=== PATIENT | female | born 1995 | race Caucasian/White ===

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

== ENCOUNTER 2017-08-29 07:39 | Outpatient (CLI) | payer BC ==
[2017-08-29 12:02] LABS: BASOPHILS # (AUTO) 0.1 10^3/uL (0.0-0.1); EOSINOPHILS # (AUTO) 0.3 10^3/uL (0.0-0.7); EOSINOPHILS % (AUTO) 3.6 %; HGB - HEMOGLOBIN 14.5 g/dL (12.0-16.0); LYMPHOCYTES # (AUTO) 2.4 10^3/uL (1.5-3.5); LYMPHOCYTES % (AUTO) 32.3 %; MEAN CORPUSCULAR HEMOGLOBIN 30.5 pg (27.0-31.0); MEAN CORPUSCULAR VOLUME 89.6 fL (81.0-99.0); MONOCYTES # (AUTO) 0.4 10^3/uL (0.0-1.0); MONOCYTES % (AUTO) 6.1 %; NEUTROPHILS # (AUTO) 4.2 10^3/uL (1.5-6.6); PLT - PLATELET COUNT 343 10^3/uL (130-450); RED BLOOD COUNT 4.77 10^6/uL (4.20-5.40); RED CELL DISTRIBUTION WIDTH 13.4 % (12.0-15.0); WHITE BLOOD COUNT 7.3 x10^3/uL (4.8-10.8)
[2017-08-29 12:47] LABS: ALBUMIN 4.3 g/dL (3.2-5.5); ALBUMIN/GLOBULIN RATIO 1.5 (1.0-2.2); BILIRUBIN,TOTAL 0.5 mg/dL (0.2-1.0); CALCIUM 9.3 mg/dL (8.5-10.3); CREATININE 0.6 mg/dL (0.4-1.0); T4 (THYROXINE) 7.16 ug/dL (6.09-12.23); TOTAL PROTEIN 7.2 g/dL (6.7-8.2)
[2017-08-29 12:53] LABS: FREE T4 (FREE THYROXINE) 0.74 ng/dL (0.58-1.64); THYROID STIMULATING HORMONE 0.95 uIU/mL (0.34-5.60)
[2017-08-29 12:57] LABS: TOTAL T3 1.35 ng/mL (0.87-1.78)
== END 2017-08-29 07:40 | disposition home or self-care (01) ==
LOC: LAB.F 07:39
PROVIDERS: ATTEND Registered Nurse
DX: F32.1 Major depressive disorder, single episode, moderate (principal)
CPT/HCPCS: 36415; 80053; 81599; 84436; 84439; 84443; 84480; 84481; 84482; 85025; 87205

== ENCOUNTER 2020-09-20 12:35 | Emergency (ER) | payer BC ==
[2020-09-20 13:20] LABS: BILIRUBIN,URINE NEGATIVE (NEGATIVE); GLUCOSE, URINE (UA) NEGATIVE (NEGATIVE); KETONES,URINE (UA) NEGATIVE (NEGATIVE); LEUKOCYTE ESTERASE, URINE NEGATIVE (NEGATIVE); NITRITE,URINE NEGATIVE (NEGATIVE); OCCULT BLOOD,URINE LARGE (NEGATIVE); PH,URINE 6.5 PH (5.0-7.5); PROTEIN,URINE NEGATIVE (NEGATIVE); UROBILINOGEN,URINE 0.2 (NORMAL) E.U./dL (NORMAL)
[2020-09-20 13:26] LABS: CLARITY,URINE CLEAR (CLEAR); HCG UR QUAL NEGATIVE
[2020-09-20 13:32] LABS: EOSINOPHILS # (AUTO) 0.1 10^3/uL (0.0-0.7); EOSINOPHILS % (AUTO) 0.5 %; WHITE BLOOD COUNT 10.5 x10^3/uL (4.8-10.8)
[2020-09-20 13:40] LABS: BASOPHILS # (AUTO) 0.1 10^3/uL (0.0-0.1); BASOPHILS % (AUTO) 0.6 %; HGB - HEMOGLOBIN 13.9 g/dL (12.0-16.0); LYMPHOCYTES # (AUTO) 2.2 10^3/uL (1.5-3.5); LYMPHOCYTES % (AUTO) 21.1 %; MEAN CORPUSCULAR HEMOGLOBIN 30.3 pg (27.0-31.0); MEAN CORPUSCULAR HGB CONC 32.9 g/dL (32.0-36.0); MEAN CORPUSCULAR VOLUME 92.2 fL (81.0-99.0); MEAN PLATELET VOLUME 9.7 fL (7.9-10.8); MONOCYTES # (AUTO) 0.5 10^3/uL (0.0-1.0); MONOCYTES % (AUTO) 4.9 %; NEUTROPHILS # (AUTO) 7.7 10^3/uL (1.5-6.6); NEUTROPHILS % (AUTO) 72.8 %; PLT - PLATELET COUNT 378 10^3/uL (130-450); RED BLOOD COUNT 4.59 10^6/uL (4.20-5.40); RED CELL DISTRIBUTION WIDTH 12.6 % (12.0-15.0)
[2020-09-20 13:42] LABS: BACTERIA,URINE Rare /HPF (None Seen); RBC,URINE 0-5 /HPF (0-5); SQUAMOUS EPITHELIAL CELL,UR RARE Squamous (<= Few)
[2020-09-20] MEDS ORDERED: SODIUM CHLORIDE 0.9% 1,000 ML IV STA (14:01)
[2020-09-20] MEDS ORDERED: ONDANSETRON 4 MG/2 ML VIAL IVP STA (14:01)
[2020-09-20] MEDS ORDERED: HYDROmorphone 1 MG/ML CARPUJECT IVP STA (14:01)
[2020-09-20 14:02] LABS: ALBUMIN 4.4 g/dL (3.2-5.5); ALBUMIN/GLOBULIN RATIO 1.2 (1.0-2.2); BILIRUBIN,TOTAL 0.6 mg/dL (0.2-1.0); CALCIUM 9.9 mg/dL (8.5-10.3); CREATININE 0.7 mg/dL (0.4-1.0); TOTAL PROTEIN 8.1 g/dL (6.7-8.2)
--- NOTE | 2020-09-20 14:04 | ED Physician Documentation ---
History of Present Illness - Stated complaint Stated Complaint: ABD PX - Chief complaint Chief Complaint: Abd Pain - History obtained from History obtained from: Patient - Additonal information Additional information: 24-year-old female presents the emergency department for evaluation of acute onset right lower quadrant pain that began 4 days ago. She reports that it was associated with nausea and vomiting as well as subjective fevers and anorexia. Since then patient has been constant. This did begin when her period started but denies a history of similar with menstrual cycles. No pertinent past surgical history. Meds OCP Review of Systems Constitutional: reports: Fever Eyes: reports: Reviewed and negative Ears: reports: Reviewed and negative Nose: reports: Reviewed and negative Throat: reports: Reviewed and negative Cardiac: reports: Reviewed and negative Respiratory: reports: Reviewed and negative GI: reports: Abdominal Pain, Nausea, Vomiting. denies: Constipation, Diarrhea, Hematemesis : reports: LMP (09/16/2020). denies: Dysuria, Frequency, Hesitancy Skin: reports: Reviewed and negative Musculoskeletal: reports: Reviewed and negative Neurologic: reports: Reviewed and negative PD PAST MEDICAL HISTORY - Past Medical History Past Medical History: No - Past Surgical History Past Surgical History: No - Present Medications Home Medications: Ambulatory Orders Medication Instructions Recorded Confirmed No Known Home Medications 09/20/20 09/20/20 - Allergies Allergies/Adverse Reactions: Allergies Allergy/AdvReac Type Severity Reaction Status Date / Time No Known Drug Allergies Allergy Verified 09/20/20 13:01 - Social History Does the pt smoke?: No Smoking Status: Never smoker Does the pt drink ETOH?: No Does the pt have substance abuse?: No - Immunizations Immunizations are current?: Yes - POLST Patient has POLST: No PD ED PE EXPANDED - General General: Alert, No acute distress, Well developed/nourished - Neck Neck: No: Adenopathy - Cardiac Cardiac: Regular Rate, Regular Rhythm, Radial strong equal, Cap refill < 2 sec - Respiratory Respiratory: Clear to ausultation anju. No: Distress, Labored - Abdomen Abdomen: Normal Bowel sounds, Tender to palpation, Rebound. No: Guarding (Tenderness to right lower quadrant with rebound but no guarding) - Extremities Extremities: Normal. No: Deformity, Tenderness - Neuro Neuro: Alert and Oriented X 3, CNII-XII intact, Normal gait, Normal finger nose, Normal speech - GCS Eye Opening: Spontaneous Motor: Obeys Commands Verbal: Oriented Total: 15 Results - Vitals Vitals: Vital Signs - 24 hr 09/20/20 09/20/20 09/20/20 13:01 13:05 15:16 Temperature 37.2 C 37.2 C Heart Rate 106 H 101 H 75 Respiratory 18 18 16 Rate Blood Pressure 156/80 H 156/80 H 105/63 O2 Saturation 98 98 100 Oxygen O2 Source Room air - Labs Labs: Laboratory Tests 09/20/20 09/20/20 09/20/20 13:13 13:28 13:28 WBC 10.5 RBC 4.59 Hgb 13.9 Hct 42.3 MCV 92.2 MCH 30.3 MCHC 32.9 RDW 12.6 Plt Count 378 MPV 9.7 Neut # (Auto) 7.7 H Lymph # (Auto) 2.2 [place] # (Auto) 0.5 Eos # (Auto) 0.1 Baso # (Auto) 0.1 Absolute Nucleated RBC 0.00 Nucleated RBC % 0.0 Sodium 138 Potassium 4.0 Chloride 99 L Carbon Dioxide 25 Anion Gap 14.0 H BUN 11 Creatinine 0.7 Estimated GFR (MDRD) 105 Glucose 90 Calcium 9.9 Total Bilirubin 0.6 AST 22 ALT 39 Alkaline Phosphatase 46 Total Protein 8.1 Albumin 4.4 Globulin 3.7 Albumin/Globulin Ratio 1.2 Lipase 35 Urine Color LT. YELLOW Urine Clarity CLEAR Urine pH 6.5 Ur Specific [place] <=1.005 Urine Protein NEGATIVE Urine Glucose (UA) NEGATIVE Urine Ketones NEGATIVE Urine Occult Blood LARGE H Urine Nitrite NEGATIVE Urine Bilirubin NEGATIVE Urine Urobilinogen 0.2 (NORMAL) Ur Leukocyte Esterase NEGATIVE Urine RBC 0-5 Urine WBC 0-3 Ur Squamous Epith Cells RARE Squamous Urine Bacteria Rare Ur Microscopic Review INDICATED Urine Culture Comments NOT INDICATED Urine HCG, Qual NEGATIVE - Rads (name of study) CT abd Radiology: Final report received (Massive heterogeneous soft tissue masses within the pelvis, possibly reflecting multiple confluent or large leiomyoma although leiomyosarcoma in the differential.) PD MEDICAL DECISION MAKING - ED course Complexity details: reviewed results, re-evaluated patient, considered differential, d/w patient, d/w storage management consultant (Dr. Stark) ED course: This is a very well-appearing 24-year-old female that presents to the emergency department for evaluation of 4 days right lower quadrant abdominal pain. It began with the onset of her menstrual cycle. Her initial screening labs were unremarkable including no leukocytosis or signs of urinary infection. However given the location of the pain we proceeded to do a CT of the abdomen to rule out acute appendicitis versus ovarian torsion. Unfortunately the CT scan does show massive soft tissue masses within the pelvis possibly reflecting large leiomyoma although leiomyosarcoma is in the differential. I did discuss the CT findings with Dr. Stark the OB on-call today. He asked me to send CEA and CA-125 markers. He would like to see the patient in office in follow-up on Tuesday or Tuesday this week. He feels that she will likely be referred to a SEO CONSULTANT oncologist. I did spend a fair amount of time at the bedside with the patient discussing these ED findings. She is understandably very concerned. Discussed that we do not know at this time whether it is a cancerous origin or more benign finding such as a leiomyoma or an endometrioma. Emergent and worrisome return precautions discussed Departure - Departure Disposition: 01 Home, Self Care Clinical Impression: Pelvic mass Condition: Stable Record reviewed to determine appropriate education?: Yes Follow-Up: Kevin Stark MD [Provider Admit Priv/Credential] - 09/22/20 Comments: [place] as we discussed unfortunately the CT scan did show very large uterine mass. This could be something very benign such as a uterine fibroid or an endometrioma. However there is a concern that it may be cancer. Also as we discussed that the CT scan did not show any enlarged lymph nodes in your abdomen which is important. I have discussed your case with Dr. Stark the HEALTH INFORMATION TECHNICIAN on-call today. He would like you to follow-up with the office on Tuesday or Tuesday. Please call early Tuesday and request to be seen in reevaluation. It is likely that you will need to be referred to a special export documents clerk that deals with these types of concerns. If at any point you have suddenly severe or uncontrolled pain, high fevers uncontrolled vomiting please return to the emergency department
[2020-09-20] MEDS ORDERED: IOVERSOL 320 100 ML VIAL IVP ONE ×2 (14:18→15:58)
--- NOTE | 2020-09-20 15:03 | CT Report ---
PROCEDURE: Abdomen/Pelvis W INDICATIONS: RLQ pain CONTRAST: IV CONTRAST: Optiray 320 ml: 100 PO CONTRAST: *NO PO CONTRAST TECHNIQUE: After the administration of IV contrast, 5 mm thick sections acquired from the diaphragms to the symp hysis. 5 mm thick coronal and sagittal reformats were acquired. For radiation dose reduction, the f ollowing was used: automated exposure control, adjustment of mA and/or kV according to patient size. COMPARISON: None. FINDINGS: Image quality: Excellent. ABDOMEN: Lung bases: Lung bases are clear. Heart size is normal. Solid organs: Liver and spleen are normal in size and enhancement. Gallbladder unremarkable Biliar y system is non dilated. Pancreas enhances normally. No adrenal nodules. Kidneys demonstrate dottie l size and enhancement, without hydronephrosis. Peritoneum and bowel: Bowel loops demonstrate normal wall thickness and caliber. No free fluid or a ir. Nodes and vessels: No retroperitoneal or mesenteric adenopathy by size criteria. Aorta and inferior vena cava are normal in size. Miscellaneous: No ventral hernias. PELVIS: Genitourinary: Bladder is grossly unremarkable although there is a large central pelvis heterogeneous mass with internal low attenuation. Exact margins are difficult to discern however this measures delmi roximately 14.6 x 18.9 cm on coronal image 26/6. The uterus is not well seen and these could be relat ed to the uterus although technically origin is unknown Miscellaneous: No inguinal hernias or adenopathy. Bones: No suspicious bony lesions. No vertebral body compression fractures. IMPRESSION: Massive heterogeneous soft tissue mass/es within the pelvis, possibly reflecting multipl e confluent or large leiomyoma although leiomyosarcoma is in the differential. Other neoplasms of ova [place] origin, are the differential. Recommend gynecologic surgical consultation and laparoscopic evalu ation as necessary. Appendix not definitely visualized however no suspicious pericecal changes. Reviewed by: Sacha Martinez MD on 09/20/2020 3:01 PM PST Approved by: Sacha Martinez MD on 09/20/2020 3:01 PM PST Station ID: [id number]
[2020-09-20 15:16] VITALS: BP 105/63
== END 2020-09-20 16:27 | disposition home or self-care (01) ==
LOC: ED 12:35
DX: R19.00 Intra-abdominal and pelvic swelling, mass and lump, unspecified site (principal); R10.31 Right lower quadrant pain; R11.2 Nausea with vomiting, unspecified
CPT/HCPCS: 36415; 74177; 80053; 81001; 81025; 82378; 83690; 85025; 86304; 96361; 96374; 96375; 99284; 99285; J1170; Q9967; 81003; 87086

== ENCOUNTER 2020-09-23 16:58 | Outpatient (CLI) | payer BC ==
--- NOTE | 2020-09-24 11:08 | Ultrasound Report ---
PROCEDURE: Pelvic w/Transvaginal INDICATIONS: FIBROID TECHNIQUE: Real-time scanning was performed of the pelvic organs, with image documentation. Additional endovagi nal scanning was necessary due to incomplete visualization of the adnexal and endometrial structures by transabdominal scanning. COMPARISON: CT abdomen pelvis 09/20/2020 FINDINGS: No pathologic free abdominal or pelvic fluid. Uterus: Uterus is not discernible within the pelvis. There are focal and confluent areas of irregula r heterogeneous echogenicity within the pelvis extending to the adnexal regions. Scattered areas of i ncreased vascularity are identified. These correspond to areas of mass lesion identified on CT abdome n pelvis of 09/20/2020. Ovaries: The ovaries are poorly visualized. The left ovary is potentially seen measuring approximate ly 36 x 15 x 30 mm. However, this region is also overlapping with areas of heterogeneous echogenicity as described within the uterine region. There is a questionable visualization of potential right ova ry measuring 35 x 19 x 27 mm, also questionable for ovary versus confluent mass. Mild free fluid is noted within the region of the right adnexa. IMPRESSION: 1. Focal and confluent areas of heterogeneous echogenicity within the region of the expected uterus a nd adnexa as above. Uterine and ovarian structures are not optimally identified. This corresponds to areas of mass lesion identified on CT exam of 09/20/2020. While this could represent extensive fibroid s, overall appearance in conjunction with CT findings raises concern for legal mild sarcoma or other malignancy. Further clinical evaluation as well as MRI pelvis is recommended. The above findings were discussed with Dr. Kevin Stark on 09/23/2020 at 9:00 AM. Reviewed by: Char Bess MD on 09/24/2020 11:06 AM PST Approved by: Char Bess MD on 09/24/2020 11:06 AM PST Station ID: [id number]
== END 2020-09-23 16:59 | disposition home or self-care (01) ==
LOC: DI 16:58
PROVIDERS: ATTEND Obstetrics & Gynecology
DX: D25.9 Leiomyoma of uterus, unspecified (principal)

== ENCOUNTER 2020-09-26 16:40 | Outpatient (CLI) | payer BC ==
[2020-09-26] MEDS ORDERED: GADOBUTROL 7.5 MMOL/7.5 ML VIAL ONE (17:04)
[2020-09-26] MEDS ORDERED: GADOBUTROL 7.5 MMOL/7.5 ML VIAL IVP ONE (17:48)
--- NOTE | 2020-09-29 12:54 | MRI Report ---
PROCEDURE: Pelvis W/WO INDICATIONS: FIBROIDS CONTRAST: IV CONTRAST: Gadavist ml: 6 TECHNIQUE: Coronal ultra fast SE, sagittal breath-hold T2 FSE; axial T1 FSE with and without fat saturation thro ugh the pelvis. Optional long- and short-axis uterine nonbreath-hold T2 FSE through the uterus. Sag ittal or axial dynamic ultra fast GE during administration of contrast. Post-contrast axial or coron al ultra fast GE / 2-D spoiled GE with fat saturation from the iliac crests to the symphysis. Option al diffusion weighted imaging and ADC may be performed. COMPARISON: Ultrasound pelvis 09/23/2020, CT abdomen pelvis 09/20/2020. FINDINGS: Image quality: Diagnostic. Uterus: The uterus is enlarged, with numerous heterogeneous T2 hypointense mass peripheral intrinsic T1 hyperintensity on T1 sequences lesions demonstrated consistent with fibroids. These include a larg e heterogeneous exophytic mass extending anteriorly from the fundus measuring approximately 15.5 x 7. 6 x 9.6 cm suggestive of a large subserosal fibroid. There is also a right paracentral intramural fib roid in the lower uterine segment, measuring up to 5.8 x 5.85 x 5.7 cm with displacement of the endom etrium to the left. This mass demonstrates a rim of peripheral intrinsic T1 hyperintensity on T1 imag es. Following contrast administration there is hypoenhancement centrally which may reflect possible c ystic degeneration. Adnexa: Both ovaries are normal in size, without definite associated suspicious adnexal masses. Urinary system: Bladder wall is normal in thickness. Distal ureters are non distended. Urethra delmi ears normal in morphology. Nodes and vessels: No pelvic or inguinal adenopathy by size criteria. Iliac vessels are normal in s ize. Prominent parametrial vessels are demonstrated in the pelvis. Bowel and peritoneum: No pathologic free pelvic fluid. Inferior colon and small bowel loops are nor mal in caliber. Soft tissues: No inguinal hernias. No findings of pelvic floor incompetence in the absence of provo cation. Bones: Marrow demonstrates normal overall signal. IMPRESSION: 1. Marked diffuse enlargement of the uterus including a suspected large exophytic subserosal fibroid extending anteriorly from the fundus. A large right paracentral intramural fibroid is also demonstrat ed in the lower uterine segment. 2. No definite adnexal masses. Reviewed by: Guerrero Bass MD on 09/29/2020 12:52 PM PST Approved by: Guerrero Bass MD on 09/29/2020 12:52 PM PST Station ID: [id number]
== END 2020-09-26 16:41 | disposition home or self-care (01) ==
LOC: DI 16:40
PROVIDERS: ATTEND Obstetrics & Gynecology
DX: D25.1 Intramural leiomyoma of uterus (principal)
CPT/HCPCS: 72197; A9585

== ENCOUNTER 2020-09-29 14:10 | Outpatient (CLI) | payer BC | END 2020-09-29 14:11 | disposition home or self-care (01) | LOC: LAB 14:10 | PROVIDERS: ATTEND Obstetrics & Gynecology | DX: Z01.812 Encounter for preprocedural laboratory examination (principal); D25.9 Leiomyoma of uterus, unspecified; Z20.822 Contact with and (suspected) exposure to COVID-19 | CPT/HCPCS: 36415; 86850; 86900; 86901; 86920 ==

== ENCOUNTER 2020-10-01 07:26 | Inpatient (IN) | payer BC ==
[2020-10-01] MEDS ORDERED: GABAPENTIN 400 MG CAPSULE ONE (07:42)
[2020-10-01] MEDS ORDERED: CELECOXIB 100 MG CAPSULE PO ONE ×3 (07:43→07:58)
[2020-10-01] MEDS ORDERED: PHENAZOPYRIDINE 100 MG TABLET PO ONE (07:46)
[2020-10-01] MEDS ORDERED: ceFAZolin 2 GM/50 ML 2 GM/50 ML BAG IV ONE (07:46)
[2020-10-01] MEDS ORDERED: ACETAMINOPHEN 1,000 MG/100 ML 100 ML IV ONE (07:46)
[2020-10-01] MEDS ORDERED: LACTATED RINGERS 1,000 ML IV ONE ×2 (08:01→13:04)
[2020-10-01 08:16] LABS: HCG UR QUAL NEGATIVE
--- NOTE | 2020-10-01 08:20 | ANESTHESIA ---
Pre-Anesthesia VS, & Labs - Diagnosis Uterine fibroid - Procedure open abdominal myomectomy. Vital Signs: Temp Pulse Resp BP Pulse Ox 36.5 C 105 H 16 114/77 100 10/01/20 08:09 10/01/20 08:09 10/01/20 08:09 10/01/20 08:09 10/01/20 08:09 Height: 5 ft 3 in Weight (kg): 64.7 kg Body Mass Index: 25.2 BMI Classification: Overweight - NPO >8 hours - Is Patient ?: No - Lab Results Current Lab Results: Laboratory Tests 10/01/20 07:56: POC Whole Bld Glucose 76 10/01/20 07:55: POC Whole Bld Glucose 81 Lab results reviewed: Yes Home Medications and Allergies Home Medications: Ambulatory Orders Control Pills 1 tab PO DAILY 09/29/20 Cholecalciferol [Vitamin D3] 5,000 unit PO DAILY 09/29/20 Multivitamin 1 each PO DAILY 09/29/20 Vitamin E 400 unit PO DAILY 09/29/20 Control Pills 1 tab PO DAILY 09/29/20 Cholecalciferol [Vitamin D3] 5,000 unit PO DAILY 09/29/20 Multivitamin 1 each PO DAILY 09/29/20 Vitamin E 400 unit PO DAILY 09/29/20 Allergies/Adverse Reactions: Allergies Allergy/AdvReac Type Severity Reaction Status Date / Time No Known Drug Allergies Allergy Verified 09/20/20 13:01 Anes History & Medical History - Anesthetic History Anesthesia Complications: reports: No previous complications - Medical History Cardiovascular: reports: None Pulmonary: reports: None Gastrointestinal: reports: None Urinary: reports: Other (hx of kidney reflux as a child) Neuro: reports: None Musculoskeletal: reports: None Endocrine/Autoimmune: reports: None Blood Disorders: reports: None Skin: reports: None Smoking Status: Never smoker Psychosocial: reports: Depression, Anxiety - Surgical History Gynecologic: Other (ureterscope for kidney reflux) Other Past Surgical History: Right breast lumpectomy Exam General: Alert, Oriented x3, Cooperative, No acute distress Dental: WNL Mouth Openin Fingerbreadth Neck Mobility: Normal Mallampati classification: I Thyromental Distance: 4-6 cm Mental/Cognitive Status: Alert/Oriented X3, Normal for patient Plan Anesthesia Type: General, Transverse Abdominis Plane (TAP) Block (Bilateral), Other (Intrathecal narcotics for post op pain) Regional Block: Per Surgeon's request for Post Op pain control Consent for Procedure(s) Verified and Reviewed: Yes Code Status: Attempt Resuscitation ASA classification: 1-Healthy patient Is this case an emergency?: No
[2020-10-01] MEDS ORDERED: DEXAMETHASONE 4 MG/ML VIAL ONE (08:28)
[2020-10-01] MEDS ORDERED: LIDOCAINE-MPF 2% 5 ML VIAL ONE (08:28)
[2020-10-01] MEDS ORDERED: ONDANSETRON 4 MG/2 ML VIAL ONE (08:28)
[2020-10-01] MEDS ORDERED: ROCURONIUM 50 MG/5 ML VIAL ONE ×2 (08:28→12:18)
[2020-10-01] MEDS ORDERED: PROPOFOL 200 MG/20 ML VIAL IVP ONE (08:28)
[2020-10-01] MEDS ORDERED: MIDAZOLAM 2 MG/2 ML VIAL ONE (08:29)
[2020-10-01] MEDS ORDERED: fentaNYL 100 MCG/2 ML VIAL ONE ×2 (08:29→11:08)
[2020-10-01] MEDS ORDERED: BUPIVACAINE 0.5% PF 30 ML VIAL ONE (09:48)
[2020-10-01] MEDS ORDERED: LIDOCAINE 2%-EPI 1:100000 20 ML MDV ONE (09:48)
[2020-10-01] MEDS ORDERED: MORPHINE PF 5 MG/10 ML VIAL ONE (09:49)
[2020-10-01] MEDS ORDERED: VASOPRESSIN 20 UNIT/ML VIAL ONE (09:49)
[2020-10-01] MEDS ORDERED: MORPHINE 2 MG/ML CARPUJECT IVP PRN (09:55)
[2020-10-01] MEDS ORDERED: HYDROmorphone 0.5 MG/0.5 ML SYRINGE IVP PRN ×2 (09:55→13:08)
[2020-10-01] MEDS ORDERED: ATROPINE ABBOJECT 1 MG/10 ML SYRINGE IVP PRN (09:55)
[2020-10-01] MEDS ORDERED: ONDANSETRON 4 MG/2 ML VIAL IVP PRN ×3 (09:55→13:08)
[2020-10-01] MEDS ORDERED: fentaNYL 100 MCG/2 ML VIAL IVP PRN (09:55)
[2020-10-01] MEDS ORDERED: NALOXONE 0.4 MG/ML VIAL IVP PRN ×2 (09:55→11:22)
[2020-10-01] MEDS ORDERED: MORPHINE PF 5 MG/10 ML VIAL IT ONE (10:00)
[2020-10-01] MEDS ORDERED: LACTATED RINGERS 1,000 ML IV SCH (10:00)
[2020-10-01] MEDS ORDERED: VASOPRESSIN 20 UNIT/ML VIAL IVP ONE ×3 (10:47→11:03)
[2020-10-01] MEDS ORDERED: BUPIVACAINE 0.5% PF 30 ML VIAL INFIL ONE ×2 (10:48)
[2020-10-01] MEDS ORDERED: LIDOCAINE 2%-EPI 1:100000 20 ML MDV SUBQ ONE ×2 (10:49)
[2020-10-01] MEDS ORDERED: METOCLOPRAMIDE 10 MG/2 ML VIAL IVP PRN (11:22)
[2020-10-01] MEDS ORDERED: NALBUPHINE 10 MG/ML AMP IVP PRN (11:22)
[2020-10-01] MEDS ORDERED: ePHEDrine 50 MG/ML VIAL IVP PRN (11:22)
[2020-10-01] MEDS ORDERED: diphenhydrAMINE INJ 50 MG/ML VIAL IVP PRN (11:22)
[2020-10-01] MEDS ORDERED: GLYCOPYRROLATE 1 MG/5 ML VIAL ONE (12:30)
[2020-10-01] MEDS ORDERED: NEOSTIGMINE 1 MG/1 ML 10 ML MDV ONE (12:30)
[2020-10-01] MEDS ORDERED: oxyCODONE 5 MG TABLET PO PRN (13:08)
--- NOTE | 2020-10-01 13:17 | OPERATIVE REPORT ---
Operative Report - General Admit Date: 10/01/20 Procedure Date: 10/01/20 Planned Procedure: Laperotomy with myomectomy and cysto Pre-Op Diagnosis: multipul fibroids, pedunculated, submucosal and intramural Procedure Performed: laperotomy with myotomy and removal of multiple fibroids Post Op Diagnosis: same - Procedure Note Primary Surgeon: Kevin Stark MD Secondary Surgeon: Hannah Pennington MD Anesthesia Provider: Bruce Wayen CRNA Anesthesia Technique: General ET tube, Local, Spinal (epidural narcotic) Pathology: conjoinded pedunculated fibroids, subserosil fibroid, and intramural fibroid IV Fluids (mL): 1,300 Estimated Blood Loss (mL): 150 Urine Output (mL): 250
--- NOTE | 2020-10-01 13:26 | ANESTHESIA POST OP EVALUATION ---
Anesthesia Post Eval - Post Anesthesia Eval Vitals: Last Vital Signs Temp 36.8 C 10/01/20 13:10 Pulse 63 10/01/20 13:20 Resp 18 10/01/20 13:20 BP 114/77 10/01/20 13:20 Pulse Ox 99 10/01/20 13:20 CV Function Including HR & BP: positive: Stable Pain Control: positive: Satisfactory Nausea & Vomiting: positive: Negative Mental Status: positive: Patient Participates Respiratory Status: Airway Patent Hydration Status: Satisfactory Anesthesia Complications: positive: None
[2020-10-01] MEDS: KETOROLAC 30 MG/ML VIAL IVP PRN (14:04)
--- NOTE | 2020-10-01 14:10 | OPERATIVE REPORT ---
DATE OF SERVICE: 10/01/2020 Physician: Kevin Stark MD PREOPERATIVE DIAGNOSES 1. Multiple uterine fibroids. 2. At the top of the uterus, 5 x 5 x 10 cm attached to another fibroid 11 x 6 x 10 cm, a submucosal fibroid. POSTOPERATIVE DIAGNOSES 1. Multiple uterine fibroids. 2. At the top of the uterus, 5 x 5 x 10 cm attached to another fibroid 11 x 6 x 10 cm, a submucosal fibroid. PROCEDURE PLANNED: Laparotomy with removal of fibroids. Possible cystoscopy. PROCEDURE: Laparotomy with removal of pedunculated fundal fibroid, as well as submucosal fibroid, my otomy, as well as removal of a posterior intramural fibroid. SURGEON: Kevin Stark MD SOCIAL MEDIA ASSISTANT: Hannah Pennington. ANESTHESIOLOGIST: Bruce Wayne CRNA. ANESTHETIC: General via endotracheal tube with local, as well as epidural narcotic. IV FLUIDS: 1300 mL ESTIMATED BLOOD LOSS: 150 mL URINE OUTPUT: 250 mL FINDINGS: Upon entering the abdominal cavity, there was evidence of a large fibroid raising up to th e umbilicus. This was attached directly on top of a larger fibroid, which was directly attached to t he uterus at the left cornual area. This was within roughly 1-1.5 cm of the left cornu. Upon openin g the uterus, there was evidence of a roughly 6 cm fibroid, which filled and deviated the endometrial cavity. For the most part, this was submucosal and did not appear to be pedunculated. There was al so a posterior fibroid in the uterine wall, which was roughly 1.5-2 cm in diameter. Tubes and ovarie s all appeared to be free of disease. PROCEDURE: Following adequate endotracheal anesthesia, patient placed in the dorsal lithotomy positi on in West stirrups. At this point, she was prepped and draped in the usual fashion. A timeout was then performed, which concerns were raised. The patient had blood typed and crossed because of poss ibility of blood loss. A Pfannenstiel incision was carried down through subcutaneous tissue to the f ascia. A 0.25% Marcaine with 1% lidocaine with epinephrine was injected at the incision site. The f ascia was then divided transversely and then bluntly and sharply dissected free from the rectus abdom inis. There was some bleeding on one of the perforators on the right-hand side that was treated with a [id number] of 2-0 Vicryl. The peritoneum was entered high. Care was taken avoid any injury to the bowel or bladder. Upon entering the abdominal cavity. Pelvic washings were obtained and sent for pathologic evaluation. The fundal fibroid immediately presented itself into the incision. This was then grasped and the 2 fibroids were brought up. There was noted to be on a stalk, which was pr obably about 2.5-3 cm, which was at the left fundus of the uterus. This was cross clamped with a cla mp and then divided using electrocautery. This was then oversewn with 2 layers of 2-0 Vicryl with th e second layer imbricating. There was some extra reinforcement. The sutures did come close to the l eft fallopian tube and its entrance. Care was taken to try to avoid any injury to that tube. At thi s point, good hemostasis was observed. The fundus of the uterus was grasped with a Jaimes retractors and the uterus was pulled up into the incision. It was felt that an O'Jean-O'Howard may help wi th exposure, so this was placed at this time. The bowel was packed away with 4 lap sponges. The henry dder was inspected on the lower uterine segment and at this point, a bladder flap was developed. The n, a low transverse uterine incision was accomplished trying to stay above the internal os of the cer vix, but still going adequately to expose the fibroid. The incision was carried down to the fibroid and then it was grasped with Allises and was bluntly dissected free from the uterine wall. The endom etrium was entered. The fibroid was removed and there was minimal bleeding noted at the base of it. At this point, the uterus was palpated and there was an additional solitary fibroid noted at the pos terior intramural location. This was roughly 1.5-2 cm in size. This was both bluntly and sharply di ssected free. The area was inspected. There was no evidence of any bleeding. At this point, the en dometrium was reapproximated utilizing 2-0 Vicryl. Care was taken to try as much as possible to keep the endometrium as free of suture and unobstructed. The myometrium was closed in 4 layers of 2-0 Vi cryl. The last layer was an imbricating layer. The incision was inspected. There was no evidence o f any bleeding. The fundus of the uterus had some bleeding at the site of the tenaculum site. This was treated with electrocautery, as well as Pitressin. The area was inspected and at this point, devendra e Surgicel was placed over the stump on the left cornual area, as well as over some of the tenaculum sites. There was no evidence of any further bleeding noted at this time. Then, Interceed was placed over the uterine incision. There was no evidence of any bleeding. The pelvis was previously irriga steve out with copious amounts of sterile saline. The peritoneum was closed utilizing 2-0 Vicryl. The rectus reapproximated with loose [id number] of 2-0 Vicryl. The rectus muscle was inspected. No bleeding noted, so the fascia was closed using a looped PDS in a running suture. Care was taken t o try and bury the knot to minimize patient discomfort. The subcutaneous tissue was closed utilizing 2-0 Vicryl and the skin was closed utilizing 4-0 Monocryl subcuticular. Mastisol with Steri-Strips was placed and a dressing was placed. At this point, the procedure was terminated. Sponge and needl e counts were correct. The patient tolerated the procedure well and was taken to recovery in stable condition. TD: 10/01/2020 13:32
[2020-10-01] MEDS: DEXTROSE 5%-LACTATED RINGERS 1,000 ML IV SCH ×2 (15:08→23:05)
[2020-10-01] MEDS: ACETAMINOPHEN 500 MG TABLET PO SCH ×2 (15:09→21:27)
--- NOTE | 2020-10-01 15:39 | PHARMACY PROGRESS NOTE ---
- Best Possible Medication History Admit Date and Time: 10/01/20 0726 Processed by: Pharmacy Medication History completed: Yes Patient Interview: Completed Secondary Source(s): Pharmacy records, Insurance records (Interviewed by El 10/01, only on control. Continued supplements per previous record. ) As the person ultimately responsible for medication therapy, providers are able to order a medication from an existing home medication list in [facility] via the "Reconcile Routine" prior to Confirmation of that medication by network desktop support specialist. Such practice is discouraged except when the physician, in their clinical judgment, deems that a medical need exists for a medication without regard to previous use.
[2020-10-01] MEDS: DOCUSATE SODIUM 100 MG CAPSULE PO SCH (21:27)
[2020-10-02] MEDS: KETOROLAC 30 MG/ML VIAL IVP PRN (03:06)
[2020-10-02] MEDS: ACETAMINOPHEN 500 MG TABLET PO SCH ×3 (06:05→21:01)
[2020-10-02] MEDS: DEXTROSE 5%-LACTATED RINGERS 1,000 ML IV SCH ×2 (06:05→13:49)
[2020-10-02] MEDS: DOCUSATE SODIUM 100 MG CAPSULE PO SCH ×2 (07:49→21:01)
--- NOTE | 2020-10-02 08:55 | PROVIDER PROGRESS NOTE ---
Subjective - General Admit Date: 10/01/20 Procedure Date: 10/01/20 Post Op Days: 1 Procedure Performed: myomectomy - Review of Systems Wound/Incisions: positive: Dressing dry and intact General: positive: No symptoms (pain 10/01) Objective - Patient Data Reviewed Vital Signs: Yes Vital Signs: Vital Signs x48h Temp Pulse Resp BP BP Pulse Ox 10/02/20 05:57 36.9 C 77 20 101/61 99 10/02/20 01:20 36.8 C 82 20 101/42 L 98 Weight: Weight 09/30/20 10/01/20 10/02/20 23:59 23:59 23:59 Weight (kg) 64.7 kg Intake & Output: Intake and Output Totals x24h 09/30/20 10/01/20 10/02/20 23:59 23:59 23:59 Intake Total 2163.75 875 Output Total 1825 650 Balance 338.75 225 - Current Medications Current Medications: Current Medications Generic Name Dose Route Start Last Admin Trade Name Freq PRN Reason Stop Dose Admin Acetaminophen 1,000 mg 10/01/20 14:00 10/02/20 06:05 Acetaminophen 500 Mg Tablet PO 1,000 mg Q8H FRENCH Administration Docusate Sodium 100 mg 10/01/20 21:00 10/02/20 07:49 Docusate Sodium 100 Mg Capsule PO 100 mg BID FRENCH Administration Dextrose/Lactated Ringer's 1,000 mls @ 125 mls/hr 10/01/20 14:00 10/02/20 06:05 D5lr IV 125 mls/hr .Q8H FRENCH Administration Ketorolac Tromethamine 30 mg 10/01/20 13:31 10/02/20 03:06 Ketorolac 30 Mg/Ml Vial IVP 10/06/20 13:30 30 mg Q6HR PRN Administration PAIN Ondansetron HCl 4 mg 10/01/20 11:22 10/01/20 19:27 Ondansetron 4 Mg/2 Ml Vial IVP 10/02/20 11:22 4 mg Q6HR PRN Administration Nausea / Vomiting - Physical Exam Wound/Incisions: positive: Dressing dry and intact General Appearance: positive: No acute distress, Alert Respiratory: positive: Chest non-tender, No respiratory distress, Breath sounds nml Cardiovascular: positive: Regular rate & rhythm, No murmur, No gallop Abdomen: positive: Nml bowel sounds Back: negative: CVA tenderness (R), CVA tenderness (L) Extremities: negative: Calf tenderness, Danuta's sign/cords Neurologic/Psychiatric: positive: Oriented x3 Impression/Plan - Problem List Problem List: POD # 1 progressing well. No flatus yet. will not advance diet yet.
[2020-10-02 09:09] LABS: BASOPHILS % (AUTO) 0.3 %; EOSINOPHILS # (AUTO) 0.1 10^3/uL (0.0-0.7); EOSINOPHILS % (AUTO) 0.6 %; HGB - HEMOGLOBIN 10.1 g/dL (12.0-16.0); LYMPHOCYTES # (AUTO) 1.8 10^3/uL (1.5-3.5); LYMPHOCYTES % (AUTO) 23.3 %; MEAN CORPUSCULAR HEMOGLOBIN 30.4 pg (27.0-31.0); MEAN CORPUSCULAR HGB CONC 32.2 g/dL (32.0-36.0); MEAN CORPUSCULAR VOLUME 94.6 fL (81.0-99.0); MEAN PLATELET VOLUME 9.2 fL (7.9-10.8); MONOCYTES # (AUTO) 0.8 10^3/uL (0.0-1.0); MONOCYTES % (AUTO) 9.5 %; NEUTROPHILS # (AUTO) 5.2 10^3/uL (1.5-6.6); PLT - PLATELET COUNT 311 10^3/uL (130-450); RED BLOOD COUNT 3.32 10^6/uL (4.20-5.40); RED CELL DISTRIBUTION WIDTH 12.5 % (12.0-15.0); WHITE BLOOD COUNT 7.9 x10^3/uL (4.8-10.8)
[2020-10-02] MEDS: IBUPROFEN 600 MG TABLET PO SCH ×2 (11:23→17:35)
[2020-10-03] MEDS: IBUPROFEN 600 MG TABLET PO SCH ×2 (00:14→05:53)
[2020-10-03] MEDS: ACETAMINOPHEN 500 MG TABLET PO SCH (05:53)
[2020-10-03 07:55] VITALS: BP 105/71
--- NOTE | 2020-10-03 09:06 | PROVIDER PROGRESS NOTE ---
Subjective - General Admit Date: 10/01/20 Procedure Date: 10/01/20 Post Op Days: 2 Procedure Performed: myomectomy - Review of Systems Wound/Incisions: positive: Healing well General: positive: No symptoms (pain 10/01, ABDOMINAL BINDER BENIFICIAL) Gastrointestinal: positive: Flatus (Stool) Genitourinary: positive: No symptoms Objective - Patient Data Reviewed Vital Signs: Yes Vital Signs: Vital Signs x48h Temp Pulse Resp BP Pulse Ox 10/03/20 07:54 36.4 C L 79 16 105/71 100 10/03/20 05:56 36.2 C L 77 16 107/69 99 Weight: Weight 10/01/20 10/02/20 10/03/20 23:59 23:59 23:59 Weight (kg) 64.7 kg Intake & Output: Intake and Output Totals x24h 10/01/20 10/02/20 10/03/20 23:59 23:59 23:59 Intake Total 2163.75 4033.667 Output Total 1825 2150 500 Balance 338.75 1883.667 -500 - Lab Results Lab Results: 10/02/20 09:00 Other Lab Results: Lab Results x24hrs 10/02/20 Range/Units 09:00 WBC 7.9 (4.8-10.8) x10^3/uL RBC 3.32 L (4.20-5.40) 10^6/uL Hgb 10.1 L (12.0-16.0) g/dL Hct 31.4 L (37.0-47.0) % MCV 94.6 (81.0-99.0) fL MCH 30.4 (27.0-31.0) pg MCHC 32.2 (32.0-36.0) g/dL RDW 12.5 (12.0-15.0) % Plt Count 311 (130-450) 10^3/uL MPV 9.2 (7.9-10.8) fL Neut # (Auto) 5.2 (1.5-6.6) 10^3/uL Lymph # (Auto) 1.8 (1.5-3.5) 10^3/uL Day # (Auto) 0.8 (0.0-1.0) 10^3/uL Eos # (Auto) 0.1 (0.0-0.7) 10^3/uL Baso # (Auto) 0.0 (0.0-0.1) 10^3/uL Absolute Nucleated RBC 0.00 x10^3/uL Nucleated RBC % 0.0 /100WBC - Current Medications Current Medications: Current Medications Generic Name Dose Route Start Last Admin Trade Name Lyndon PRN Reason Stop Dose Admin Acetaminophen 1,000 mg 10/01/20 14:00 10/03/20 05:53 Acetaminophen 500 Mg Tablet PO 1,000 mg Q8H FRENCH Administration Docusate Sodium 100 mg 10/01/20 21:00 10/02/20 21:01 Docusate Sodium 100 Mg Capsule PO 100 mg BID FRENCH Administration Ibuprofen 600 mg 10/02/20 10:00 10/03/20 05:53 Ibuprofen 600 Mg Tablet PO 600 mg Q6HR FRENCH Administration - Physical Exam Wound/Incisions: positive: Healing well General Appearance: positive: No acute distress, Alert Neck: positive: No JVD Respiratory: positive: Chest non-tender, No respiratory distress, Breath sounds nml Cardiovascular: positive: Regular rate & rhythm, No murmur, No gallop Back: negative: CVA tenderness (R), CVA tenderness (L) Skin: positive: Color nml, No rash, Warm, Dry Extremities: negative: Calf tenderness, Danuta's sign/cords Neurologic/Psychiatric: positive: Oriented x3 Impression/Plan - Problem List Problem List: POD #2 excellent progress mild anemia Send home RTC one week discharge meds oxycodone 5 mg # 15 motrin home supply [facility] home supply
--- NOTE | 2020-10-03 09:10 | Discharge Plan ---
Discharge Plan Problem Reviewed?: Yes Disposition: Home, Self Care Condition: Good Diet: Regular Activity Restrictions: pelvic rest 6 weeks Shower Restrictions: No Driving Restrictions: Yes (not while on narcotics) Weight Bearing: Full Weight No Smoking: If you smoke, Please STOP! Call for help.
--- NOTE | 2020-10-03 12:49 | DISCHARGE SUMMARY ---
Physician: Kevin Stark MD DATE OF ADMISSION: 10/01/2020 DATE OF DISCHARGE: 10/03/2020 ADMITTING DIAGNOSIS: Three large uterine fibroids. DISCHARGE DIAGNOSIS: Three large uterine fibroids. PROCEDURE: Laparotomy with excision of uterine fibroids. PRESENTING HISTORY: Patient is a 24-year-old female who started feeling poorly roughly 5 months ago. She was seen in the emergency room, at which time, she had a CT, which showed 3 large uterine fibro ids. She had an MRI, which confirmed these. Two were in the fundal area, 1 was submucosal. There a lso appeared to be a small posterior intramural fibroid. She is a female and has desired futur e pregnancies. Reviewed with Oncology the concerns about a possible leiomyosarcoma and they recommen ded procedure being done here. LABORATORIES: CBC postop showed a white count of 7.9, hemoglobin of 10.1, hematocrit of 31.4, platel ets were 311. The patient's urine hCG was negative. HOSPITAL COURSE: The patient was taken to the operating room, at which time, an open laparotomy thro ugh a Pfannenstiel incision was accomplished. Upon entering the abdominal cavity, pelvic washings we re taken. She was noted to have 2 fundal fibroids, the sides ran from 10-12 cm in maximal diameter. These were attached in a single small pedicle to the left cornu of the uterus. These were amputated and then the uterus was oversewn. The left fallopian tube was near to this area and is an area of c oncern. A low transverse uterine incision was accomplished and the submucosal fibroid, which was rou ghly 6 cm, was shelled out. This did violate the endometrial cavity. While palpating the uterus, th ere was a smaller 1.5-2 cm fibroid noted in the posterior intramural area. This was removed. The ut erus was then closed in layers. Her postop course has been unremarkable. Her diet has been advanced . She is passing flatus and stool. She is voiding. She states her pain is roughly 2/10. She is co ntrolling this with oxycodone. She is being discharged to home today with instructions to follow up in the clinic in 1 week. DISCHARGE MEDICATIONS: Those of oxycodone 5 mg, #15, Motrin 800 mg home supply, as well as Colace ho al supply. She is told to take the Colace to prevent constipation, which can occur from her oxycodon e. We discussed the issues of chills, fevers, temperatures. TD: 10/03/2020 09:17
== END 2020-10-03 10:00 | disposition home or self-care (01) | DRG 743 ==
LOC: MS2 07:26
PROVIDERS: ADMIT Obstetrics & Gynecology; ATTEND Obstetrics & Gynecology
PROC: 0UB90ZZ Excision of Uterus, Open Approach (ICD-10-PCS; principal; 2020-10-01 08:45)
DX: D25.1 Intramural leiomyoma of uterus (principal); D25.0 Submucous leiomyoma of uterus; D25.2 Subserosal leiomyoma of uterus; D64.9 Anemia, unspecified; E66.3 Overweight; Z68.25 Body mass index [BMI] 25.0-25.9, adult; Z84.2 Family history of other diseases of the genitourinary system
CPT/HCPCS: 81025; 85025; A9270; J0131; J0690; J2274; J7120

== ENCOUNTER 2025-07-23 06:34 | Inpatient (IN) ==
[2025-07-23] MEDS ORDERED: CITRIC ACID/SODIUM CITRATE 15 ML UDC PO ONE (06:37)
--- OUTSIDE RECORDS SUMMARY | 2025-07-23 06:38 | EXTERNAL MEDICAL SUMMARY RPT | Continuity of Care Document ---
Author Organization [facility] Address [address] [place] [id number] Phone Problems date description facility 2025-05-07 09:48 Encounter for superv ision of normal , unspecified, unspecified trimester [facility] 2025-05-10 09:31 Maternal care for lo w transverse scar from previous delivery [facility] 2025-05-10 09:31 Encounter for superv ision of normal , unspecified, unspecified trimester [facility] 2025-05-20 09:25 Encounter for superv ision of normal , unspecified, unspecified trimester [facility] 2025-05-20 11:41 Encounter for immunization [facility] 2025-05-21 00:04 Encounter for superv ision of normal , unspecified, unspecified trimester [facility] 2025-05-21 12:14 Supervision of high risk , unspecified, third trimester [facility] 2025-05-21 14:05 Encounter for superv ision of normal , unspecified, unspecified trimester [facility] 2025-05-22 10:29 Supervision of pregn arjun with history of pre-term labor, third trimester [facility] 2025-05-22 10:30 Encounter for immunization [facility] 2025-06-03 15:04 Supervision of high risk , unspecified, third trimester [facility] 2025-06-03 15:10 Supervision of high risk , unspecified, third trimester [facility] 2025-06-05 08:52 Supervision of high risk , unspecified, third trimester [facility] 2025-06-05 10:58 Encounter for immunization [facility] 2025-06-07 09:26 Maternal care for un specified type scar from previous delivery [facility] 2025-06-07 09:26 Encounter for immunization [facility] 2025-06-12 12:29 Supervision of high risk , unspecified, [facility] 10:26 Encounter for immunization [facility] 2025-06-17 16:06 Supervision of high risk , unspecified, third trimester [facility] 2025-06-18 00:02 Supervision of high risk , unspecified, third trimester [facility] 2025-06-19 08:14 Obesity complicating , third trimester [facility] 2025-06-19 08:14 Encounter for immunization [facility] 2025-06-21 08:09 Supervision of high risk , unspecified, third trimester [facility] 2025-06-21 08:10 Encounter for immunization [facility] 2025-06-27 14:04 Supervision of high risk , unspecified, third trimester [facility] 2025-07-05 10:43 Maternal care for un specified type scar from previous delivery [facility] 2025-07-15 09:19 False labor before 3 7 completed weeks of gestation, third trimester [facility] 2025-07-15 14:10 Encounter for screeni ng for Streptococcus B [facility] 2025-07-15 14:11 Encounter for screeni ng for Streptococcus B [facility] 2025-07-15 15:22 Morbid (severe) obesity due to excess calories [facility]25-[facility]-15 15:22 Obesity, class 1 [facility] 2025-07-15 15:22 Supervision of high risk , unspecified, third [facility] 2025-07-15 15:22 Maternal care for un specified type scar from previous delivery [facility] 2025-07-15 15:22 Maternal care due to uterine scar from other previous surgery [facility] 2025-07-15 15:22 Obesity complicating , third trimester [facility] 2025-07-15 15:22 Encounter for screeni ng for Streptococcus B [facility] 2025-[facility]-15 15:23 Morbid (severe) obesity due to excess calories [facility] 2025-07-15 15:23 Obesity, class 1 [facility] 2025-07-15 15:23 Supervision of high risk , unspecified, third [facility] 15:23 Maternal care for un specified type scar from previous delivery [facility] 2025-07-15 15:23 Maternal care due to uterine scar from other previous surgery [facility] 2025-07-15 15:23 Obesity complicating , third trimester [facility] 2025-07-15 15:23 Encounter for screeni ng for Streptococcus B [facility] 2025-07-16 00:05 Morbid (severe) obesity due to excess calories [facility] 2025-07-16 00:05 Obesity, class 1 [facility] 2025-07-16 00:05 Supervision of high risk , unspecified, third trimester [facility] 2025-07-16 00:05 Maternal care for un specified type scar from previous delivery [facility] 2025-07-16 00:05 Maternal care due to uterine scar from other previous surgery [facility] 2025-07-16 00:05 Obesity complicating , third trimester [facility] 2025-07-16 00:05 Encounter for screeni ng for Streptococcus B [facility] 2025-07-16 08:29 Morbid (severe) obesity due to excess calories [facility] 2025-07-16 08:29 Obesity, class 1 [facility] 2025-07-16 08:29 Supervision of high risk , unspecified, third trimester [employer] [facility] 2025-07-16 08:29 Maternal care for un specified type scar from previous delivery [facility] 2025-07-16 08:29 Maternal care due to uterine scar from other previous surgery [facility] 2025-07-16 08:29 Obesity complicating , third trimester [facility] 2025-07-16 08:29 Encounter for screeni ng for Streptococcus B [facility] 2025-07-17 16:26 Decreased move ments, third trimester, not applicable or unspecified [facility] Results/Labs test date facility value unit notes Result panel 1 WHITE BLOOD COUNT 2025-05-20 10:31 [facility] 10.5 x10 3/ul (missing) HGB - HEMOGLOBIN 2025-05-20 10:31 [facility] 11.6 g/dl (missing) GLUCOSE,1H PP 50GM DOSE 2025-05-20 10:31 [facility] 120 mg/dl 50g Challenge 1 hr post Glucose < 140 mg/dL Reference: [employer] As of February 2023 testing method has changed, this may include reference ranges. RED CELL DISTRIBUTION WIDTH 2025-05-20 10:31 [facility] 13.6 % (missing) MEAN CORPUSCULAR HEMOGLOBIN 2025-05-20 10:31 [facility] 29.2 pg (missing) RED BLOOD COUNT 2025-05-20 10:31 [facility] 3.97 10 6/ul (missing) MEAN CORPUSCULAR HGB CONC 2025-05-20 10:31 [facility] 32.6 g/dl (missing) PLT - PLATELET COUNT 2025-05-20 10:31 [facility] 346 10 3/ul (missing) HCT - HEMATOCRIT 2025-05-20 10:31 [facility] 35.6 % (missing) MEAN CORPUSCULAR VOLUME 2025-05-20 10:31 [facility] 89.7 fl (missing) MEAN PLATELET VOLUME 2025-05-20 10:31 [facility] 9.2 fl (missing) RPR 2025-05-20 10:31 [facility] Non Reactive (missing) Performed at: [facility] [id number] Family Nurse: Guerrero Taylor MD, Phone: [phone] Result panel 2 BILIRUBIN,TOTAL 2025-07-11 17:55 [facility] 0.3 mg/dl As of February 2023 testing method has changed, this may include reference ranges. CREATININE 2025-07-11 17:55 [facility] 0.4 mg/dl As of February 2023 testing method has changed, this may include reference ranges. ALBUMIN/GLOBULIN RATIO 2025-07-11 17:55 [facility] 1.4 (missing) (missing) CHLORIDE 2025-07-11 17:55 [facility] 107 mmol/l As of February 2023 testing method has changed, this may include reference ranges. WHITE BLOOD COUNT 2025-07-11 17:55 [facility] 11.2 x10 3/ul (missing) HGB - HEMOGLOBIN 2025-07-11 17:55 [facility] 12.6 g/dl (missing) RED CELL DISTRIBUTION WIDTH 2025-07-11 17:55 [facility] 13.9 % (missing) SODIUM 2025-07-11 17:55 [facility] 136 mmol/l (missing) AST ASPARTATE AMINOTRANSFERASE 2025-07-11 17:55 [facility] 18 iu/l As of February 2023 testing method has changed, this may include reference ranges. GFR - MDRD 2025-07-11 17:55 [facility] 191 (missing) The IDMS-traceable MDRD Study Equation has been validated extensively in and populations between the ages of 18 and 70 with impaired kidney function (eGFR < 60 mL/min/1.73m2) and has shown good performance for patients with all common causes of kidney disease. Although this equation has not been validated for patients older than 70, an MDRD-derived eGFR may still be a useful tool for providers caring for patients older than 70. References: http://www.nkdep. nih.gov/lab-evalu ation/gfr/creatin ine-stand ardization, last updated October 2011. GLOBULIN 2025-07-11 17:55 [facility] 2.7 g/dl (missing) CARBON DIOXIDE - CO2 2025-07-11 17:55 [facility] 21 mmol/l As of February 2023 testing method has changed, this may include reference ranges. ALKALINE PHOSPHATASE 2025-07-11 17:55 [facility] 223 iu/l As of February 2023 testing method has changed, this may include reference ranges. ALT ALANINE AMINOTRANSFERASE 2025-07-11 17:55 [facility] 23 iu/l As of February 2023 testing method has changed, this may include reference ranges. MEAN CORPUSCULAR HEMOGLOBIN 2025-07-11 17:55 [facility] 29.2 pg (missing) POTASSIUM 2025-07-11 17:55 [facility] 3.5 mmol/l As of February 2023 testing method has changed, this may include reference ranges. ALBUMIN 2025-07-11 17:55 [facility] 3.7 g/dl As of February 2023 testing method has changed, this may include reference ranges. PLT - PLATELET COUNT 2025-07-11 17:55 [facility] 327 10 3/ul (missing) MEAN CORPUSCULAR HGB CONC 2025-07-11 17:55 [facility] 33.3 g/dl (missing) HCT - HEMATOCRIT 2025-07-11 17:55 [facility] 37.8 % (missing) RED BLOOD COUNT 2025-07-11 17:55 [facility] 4.32 10 6/ul (missing) BUN - BLOOD UREA NITROGEN 2025-07-11 17:55 [facility] 5 mg/dl As of February 2023 testing method has changed, this may include reference ranges. TOTAL PROTEIN 2025-07-11 17:55 [facility] 6.4 g/dl As of February 2023 testing method has changed, this may include reference ranges. GLUCOSE 2025-07-11 17:55 [facility] 79 mg/dl As of February 2023 testing method has changed, this may include reference ranges. ANION GAP 2025-07-11 17:55 [facility] 8.0 (missing) (missing) MEAN CORPUSCULAR VOLUME 2025-07-11 17:55 [facility] 87.5 fl (missing) CALCIUM 2025-07-11 17:55 [facility] 9.2 mg/dl As of February 2023 testing method has changed, this may include reference ranges. MEAN PLATELET VOLUME 2025-07-11 17:55 [facility] 9.5 fl (missing) Result panel 3 PROTEIN/CREATININE RATIO,URINE 2025-07-11 18:10 [facility] 0.1 (missing) (missing) CREATININE,URINE 2025-07-11 18:10 [facility] 47.0 mg/dl As of February 2023 testing method has changed, this may include reference ranges. TOTAL PROTEIN,URINE TIMED 2025-07-11 18:10 [facility] 5 mg/dl As of February 2023 testing method has changed, this may include reference ranges. Result panel 4 GBSPCR,REFLEX IF PEN ALLERGIC 2025-07-15 14:10 [facility] NEGATIVE (missing) (missing) Social History date description facility
[2025-07-23 07:20] LABS: HCT - HEMATOCRIT 38.6 % (37.0-47.0); HGB - HEMOGLOBIN 12.6 g/dL (12.0-16.0); MEAN PLATELET VOLUME 9.7 fL (7.9-10.8); NRBC ABSOLUTE COUNT (AUTO) 0.00 x10^3/uL; NUCLEATED RED BLOOD CELLS AUTO 0.0 /100WBC; PLT - PLATELET COUNT 372 10^3/uL (130-450); RED CELL DISTRIBUTION WIDTH 13.9 % (12.0-15.0)
[2025-07-23 08:06] LABS: ALT ALANINE AMINOTRANSFERASE 17.0 IU/L (10-60); AST ASPARTATE AMINOTRANSFERASE 16.0 IU/L (10-42); BUN - BLOOD UREA NITROGEN 7.0 mg/dL (6-20); CARBON DIOXIDE - CO2 20.0 mmol/L (21-32); CREATININE 0.5 mg/dL (0.6-1.3); GFR - MDRD 148.0 (>89)
[2025-07-23] MEDS: ACETAMINOPHEN 500 MG TABLET PO ONE (08:22)
--- NOTE | 2025-07-23 08:25 | HISTORY & PHYSICAL EXAMINATION ---
Admit History Smoking Status: Never smoker Other Maternal History Other Maternal History: 29-year-old at 37 weeks 2 days gestation presenting today for repeat section. She has had intermittent contractions for several week. She has good movement. Denies loss of fluid. No DODSON/BV or RUQP. No vaginal bleeding. Denies nausea and vomiting. Denies urinary urgency or dysuria. All other symptoms reviewed and were negative except per HPI. Course LMP: 10/28/24 - certain MARGOT by LMP: 08/04/25 US: 12/27/24 measuring 7w4d, MARGOT 08/11/25 Final MARGOT: 08/11/25 by 1st tri US Problems: RCS, hx labor/delivery History of myomectomy: Extensive myomectomy including endometrial cavity injury. Early term to late section. Did have 36 weeks spontaneous labor last . Recommend 35 to 36 weeks steroids and progressing to 37 weeks 0 days if possible. History of labor: Delivery at 36+0 weeks last social: Dunia is home mom with 3.5 yo son. Ander works for a [employer] Insufficient weight gain in : EFW on 06/17: 70th percentile, 2129 g. Pre- Weight: 195 BMI: 34.5 Blood type: A+ Antibody: Negative CBC: 13.8/41.1; 347 RUB: Immune VZV: Immune HBsAg: Negative HepC: NR RPR/AB-EIA: NR HIV: NR PAP: 11/08/24 - normal GC/CT: 01/23/2025 HSV: denies in self and partner Genetic testing: NIPT negative, AFP ordered Covid: declines flu 06/05/2025 FAS: 03/25 Placenta: anterior without previa Cord: 3VC VERITO: WNL 59% EFW: 368g 74% 50gm OGCT: 120 TDAP: 05/20/25 Breast Pump: ordered RPR NR CBC: 11.6/35.6/346 RSV- 06/17/25 GBS: 07/15/25 Delivery plan: 36-37 week RCS Contraception: natural family planning HPI Current : Vital Signs Temperature 37.2 C 07/23/25 07:30 Pulse Rate 84 07/23/25 07:30 Respiratory Rate 16 07/23/25 07:30 Blood Pressure 122/81 07/23/25 07:30 O2 Saturation 98 12/02/25 06:42 Meds/Allgy Home Medications Ambulatory Orders Medication Instructions Recorded Confirmed cholecalciferol (vitamin D3) 125 5,000 unit PO DAILY 0 09/29/20 07/15/25 mcg (5,000 unit) capsule fluticasone propionate 50 1 spray intranasal QDAY 11/2107/15/25 mcg/actuation nasal spray,suspension (Flonase Allergy Relief) vits no.126-ferrous fum tab PO 12/17/2407/15 28 mg iron-folic acid 800 mcg tablet (Classic ) Allergies Allergies Allergy/AdvReac Type Severity Reaction Status Date / Time No Known Drug Allergies Allergy Verified 07/15/25 14:06 PFSH Active Problems All Active Problems (Updated 07/23/25 @ 08:24 by Abdias Garcia MD) 37 weeks gestation of (Acute) Maternal care for low transverse scar from previous delivery (Acute) Supervision of high risk in third trimester (Acute) Obesity, Class I, BMI 30-34.9 (Acute) Obesity affecting (Acute) Hx of uterine surgery affecting current (Acute) with history of section, antepartum (Acute) Medical History Medical History (Updated 07/23/25 @ 08:24 by Abdias Garcia MD) Supervision of high risk , unspecified, first trimester Encounter for Papanicolaou smear for cervical cancer screening Normal in second trimester Anovulation Secondary amenorrhea Fibroid, uterine Migraines Anxiety and depression Surgical History Surgical History (Updated 12/18/24 @ 21:53 by Dee Kim MD) H/O myomectomy History of kidney surgery History of delivery H/O breast surgery Family History Family History Mother Breast cancer Maternal grandmother Ovarian cancer Uncle Suicide Other Prostate cancer Social History Social History (Updated 04/11/25 @ 13:51 by Romy Johns MA) Smoking Status: Never smoker Do you dip or chew tobacco?: No Do you vape?: No ETOH Use: Liquor Frequency: Occasional Substance Use: denies use POLST Patient has POLST: No Review of Systems Status of ROS: 10 or more systems reviewed and unremarkable except as noted in history and below Physical Abdominal Exam Vital Signs: Temp Pulse Resp BP Pulse Ox 37.2 C 84 16 122/81 98 07/23/25 07:30 07/23/25 07:30 07/23/25 07:30 07/23/25 07:30 07/23/25 06:42 Other Notes Labor Progress Note/Additional Text: General: Alert, oriented, no acute distress Head: Normal cephalic atraumatic Eyes: PERRLA, extraocular motions intact. Respiratory: Normal rate of respiration. No accessory muscle use, normal respiratory effort. Abdomen: Gravid, nontender, nondistended Extremities: Normal range of motion Neuro: Oriented x3. Normal movements Psych: Appropriate mood and affect. Normal judgment and insight FHT: 135 BPM baseline, moderate variability, accelerations present, no decelerations. Reactive NST Miston: quiescent Plan for Labor Plan For Labor I expect patient to be DC'd or transferred within 96 hours.: Yes Conclusion/Plan Problem List (1) Maternal care for low transverse scar from previous delivery: Plan: Admit to L&D, admit labs. Plan for spinal anesthetic for section. section was recommended. Risks, benefits and alternatives were discussed including but not limited to infection, bleeding that may require blood products or hysterectomy for life saving measures, injury to surrounding organs including but not limited to bowel, bladder, ureters, tubes and ovaries and/or the baby. Should injury occur it could require longer/additional surgery to repair. The patient stated understanding and desired to proceed. All questions were answered posed by patient. (2) 37 weeks gestation of : (3) Supervision of high risk in third trimester: (4) Obesity, Class I, BMI 30-34.9: (5) Obesity affecting : Qualifiers: Trimester: third trimester Obesity type affecting : severe obesity due to excess calories Qualified Code(s): O99.213 - Obesity complicating , third trimester; E66.01 - Morbid (severe) obesity due to excess calories (6) Hx of uterine surgery affecting current : (7) with history of section, antepartum: Lab Results 07/23/25 06:58 07/23/25 06:58
[2025-07-23] MEDS ORDERED: MORPHINE PF 5 MG/10 ML VIAL ONE (08:42)
[2025-07-23] MEDS ORDERED: fentaNYL 100 MCG/2 ML VIAL ONE (08:42)
[2025-07-23] MEDS ORDERED: ePHEDrine 50 MG/ML VIAL IVP PRN (08:52)
[2025-07-23] MEDS ORDERED: MORPHINE 2 MG/ML CARPUJECT IVP PRN (08:52)
[2025-07-23] MEDS ORDERED: NALOXONE 0.4 MG/ML VIAL IVP PRN (08:52)
[2025-07-23] MEDS ORDERED: HYDROmorphone 0.5 MG/0.5 ML SYRINGE IVP PRN (08:52)
[2025-07-23] MEDS ORDERED: METOCLOPRAMIDE 10 MG/2 ML VIAL IVP PRN (08:52)
[2025-07-23] MEDS ORDERED: ONDANSETRON 4 MG/2 ML VIAL IVP PRN (08:52)
[2025-07-23] MEDS ORDERED: ATROPINE ABBOJECT 1 MG/10 ML SYRINGE IVP PRN (08:52)
--- NOTE | 2025-07-23 08:52 | ANESTHESIA PROCEDURE NOTE ---
Pre-Anesthesia VS, & Labs Diagnosis Surgical Diagnosis:: previous C/S Procedure Procedure: repeat C/s Vitals Vital Signs: Temp Pulse Resp BP Pulse Ox 37.2 C 84 16 127/91 H 98 07/23/25 07:30 07/23/25 07:30 07/23/25 07:30 07/23/25 07:50 07/23/25 06:42 NPO NPO: >8 hours Is Patient ?: Yes Lab Results Current Lab Results: Laboratory Tests 07/23/25 06:58: WBC 9.0, RBC 4.47, Hgb 12.6, Hct 38.6, MCV 86.4, MCH 28.2, MCHC 32.6, RDW 13.9, Plt Count 372, MPV 9.7, Neut # (Auto) 5.9, Lymph # (Auto) 2.2, [place] # (Auto) 0.7, Eos # (Auto) 0.2, Baso # (Auto) 0.1, Absolute Nucleated RBC 0.00, Nucleated RBC % 0.0, Sodium 136, Potassium 3.7, Chloride 106, Carbon Dioxide 20 L, Anion Gap 10.0, BUN 7, Creatinine 0.5 L, Estimated GFR (MDRD) 148, Glucose 80, Calcium 9.4, Total Bilirubin 0.4, AST 16, ALT 17, Alkaline Phosphatase 268 H, Total Protein 5.9 L, Albumin 3.6, Globulin 2.3, Albumin/Globulin Ratio 1.6, Blood Type A POSITIVE, Antibody Screen NEGATIVE 07/23/25 06:58 07/23/25 06:58 Meds/Allgy Home Medications Ambulatory Orders Medication Instructions Recorded Confirmed cholecalciferol (vitamin D3) 125 5,000 unit PO DAILY 0 09/29/20 07/15/25 mcg (5,000 unit) capsule fluticasone propionate 50 1 spray intranasal QDAY 11/2107/15/25 mcg/actuation nasal spray,suspension (Flonase Allergy Relief) vits no.126-ferrous fum tab PO 12/17/2407/15 28 mg iron-folic acid 800 mcg tablet (Classic ) Allergies Allergies Allergy/AdvReac Type Severity Reaction Status Date / Time No Known Drug Allergies Allergy Verified 07/15/25 14:06 PFSH Active Problems All Active Problems 37 weeks gestation of (Acute) Maternal care for low transverse scar from previous delivery (Acute) Supervision of high risk in third trimester (Acute) Obesity, Class I, BMI 30-34.9 (Acute) Obesity affecting (Acute) Hx of uterine surgery affecting current (Acute) with history of section, antepartum (Acute) Medical History Medical History Normal in second trimester Supervision of high risk , unspecified, first trimester Encounter for Papanicolaou smear for cervical cancer screening Secondary amenorrhea Anovulation Fibroid, uterine Migraines Anxiety and depression Surgical History Surgical History H/O myomectomy History of kidney surgery History of delivery H/O breast surgery Family History Family History Mother Breast cancer Maternal grandmother Ovarian cancer Uncle Suicide Other Prostate cancer Social History Social History Smoking Status: Never smoker Do you dip or chew tobacco?: No Do you vape?: No ETOH Use: Liquor Frequency: Occasional Substance Use: denies use POLST Patient has POLST: No POLST CPR Status: Attempt Resuscitation (CPR) Level of Medical Intervention: Full Treatment Anesthesia Exam (Expanded) Exam General: Alert, Oriented x3 and Cooperative Dental: WNL Mouth Openin Fingerbreadth Neck Mobility: Normal Mallampati classification: II Thyromental Distance: 4-6 cm Respiratory: Lungs clear Cardiovascular: Regular rate Exam Exam Vital Signs: Vital Signs x48h Temp Pulse Resp BP BP Pulse Ox 07/23/25 07:50 127/91 H 07/23/25 07:30 37.2 C 84 16 122/81 07/23/25 06:42 18 136/92 H 98 Plan Problem List (1) Maternal care for low transverse scar from previous delivery: Plan: Admit to L&D, admit labs. Plan for spinal anesthetic for section. section was recommended. Risks, benefits and alternatives were discussed including but not limited to infection, bleeding that may require blood products or hysterectomy for life saving measures, injury to surrounding organs including but not limited to bowel, bladder, ureters, tubes and ovaries and/or the baby. Should injury occur it could require longer/additional surgery to repair. The patient stated understanding and desired to proceed. All questions were answered posed by patient. (2) 37 weeks gestation of : (3) Supervision of high risk in third trimester: (4) Obesity, Class I, BMI 30-34.9: (5) Obesity affecting : Qualifiers: Trimester: third trimester Obesity type affecting : severe obesity due to excess calories Qualified Code(s): O99.213 - Obesity complicating , third trimester; E66.01 - Morbid (severe) obesity due to excess calories (6) Hx of uterine surgery affecting current : (7) with history of section, antepartum: Plan Anesthesia Type: Spinal Consent for Procedure(s) Verified and Reviewed: Yes Code Status: Attempt Resuscitation ASA Classification ASA classification: 2-Mild systemic disease Is this case an emergency?: No
[2025-07-23] MEDS ORDERED: CARBOPROST TROMETHAMINE 250 MCG/ML VIAL IM ONE (09:19)
[2025-07-23] MEDS ORDERED: METHYLERGONOVINE 0.2 MG/ML VIAL ONE (09:19)
[2025-07-23] MEDS: ceFAZolin (2G) 2 GM in SODIUM CHLORIDE 0.9% MINIBAG 100 ML IV ONE (09:30)
[2025-07-23] MEDS ORDERED: KETOROLAC 30 MG/ML VIAL ONE (09:36)
[2025-07-23] MEDS ORDERED: OXYTOCIN/SODIUM CHLORIDE 500 ML IV ONE (10:02)
[2025-07-23] MEDS ORDERED: TRANEXAMIC ACID IN NACL 1,000 MG/100 ML BAG IV ONE ×2 (10:02→10:30)
[2025-07-23] MEDS ORDERED: PROPOFOL 200 MG/20 ML VIAL IVP ONE (10:49)
[2025-07-23] MEDS: LACTATED RINGERS 1,000 ML IV SCH ×2 (11:13→12:00)
[2025-07-23] MEDS ORDERED: OXYTOCIN/SODIUM CHLORIDE 500 ML IV PRN (11:13)
[2025-07-23] MEDS ORDERED: ONDANSETRON ODT 4 MG TABLET TL PRN (11:13)
--- NOTE | 2025-07-23 11:14 | OPERATIVE REPORT ---
Operative Report General Admit Date: 07/23/25 Procedure Data: Operation Date: 07/23/25 08:30 Proposed Procedures p Section(Not Applicable) - Abdias Garcia MD Actual Procedures p Section(Not Applicable) - Abdias Garcia MD Pre-Op Diagnosis: Previous scar, history of uterine surgery, 37 weeks gestation Postop diagnosis: Same, status post repeat low-transverse section, delivery of live lopez Anesthesia Type Spinal Case Staff Anesthesia Provider: Vania Prieto Assisting Provider: Rob York Case Times Procedure Start: 07/23/25 09:30 Time out: 07/23/25 09:28 Procedure Note Estimated Blood Loss (ml): 800 Pathology: None Findings: Multiple, small adhesions to uterine body and omentum. Complications: None Other Other Information/Narrative: section was recommended. Risks, benefits and alternatives were discussed including but not limited to infection, bleeding that may require blood products or hysterectomy for life saving measures, injury to surrounding organs including but not limited to bowel, bladder, ureters, tubes and ovaries and/or the baby. Should injury occur it could require longer/additional surgery to repair. The patient stated understanding and desired to proceed. All questions were answered posed by patient. Prior to being taken to the OR, 2 grams of cefazolin IV was administered. The patient was taken to the operating room where regional anesthesia was found to be adequate. She was then prepared and draped in the usual sterile fashion in the dorsal supine position with a leftward tilt displacing the uterus. Ren was draining to gravity. SCDs were on bilateral lower extremities. Time out was taken. A pfannenstiel skin incision was then made with the scalpel and carried through to the underlying layer of fascia. The fascia was incised in the midline and the incision extended laterally with the Blue scissors. The superior aspect of the facial incision was then grasped with the Matty clamps, elevated and the underlying rectus muscles dissected off sharply. There was a fair amount of dense adhesions thickening the muscle and fascial connection. Attention was then turned to the inferior aspect of this incision which in a similar fashion was grasped, elevated with the Matty clamps and the rectus muscle dissected off sharply. The rectus muscles were in the midline. The peritoneum identified, and entered blutly. The peritoneal incision was then extended superiorly and inferiorly with good visualization of the bladder. The bladder blade was inserted. We did have dissected the omentum off the uterus and anterior abdominal wall and a few spaces. This was carefully dissected with a combination of blunt and sharp dissection. The vesicouterine peritoneum was identified, grasped with the pick-ups, and entered sharply with Metzenbaum scissors. This incision was then extended laterally and the bladder flap created digitally. The bladder blade was reinserted. The lower uterine segment was identified and incised in a transverse fashion with the scalpel. The uterine incision was then extended bluntly laterally. Artificial rupture of membranes demonstrated clear fluid. The bladder blade was removed. The fetus was in a cephalic presentation. The infants head delivered atraumatically. The anterior shoulders were delivered followed by the posterior shoulders then the remainder of the body. The infants mouth and nose were bulb suctioned. The umbilical cord was clamped times two and cut. The infant was handed to the pediatric team. The placenta was removed with gentle traction. Oxytocin was added to the IV fluid and was allowed to run freely. The uterus was exteriorized and cleared of all clots and debris. The uterine incision was inspected and found to be without any extensions and was repaired with 0 Vicryl in a running, locked fashion. A second imbricating layer was performed. Upon inspection, the repaired hysterotomy was found to be hemostatic. There were numerous, small oozing spots from the adhesions which required a combination of suture ligation, electrocautery, and homstatic powder. Surgicel was placed over the oozing serosal tears from adhesions on the uterus. The uterus was firm and returned to the abdomen. The gutters were cleared of all clots and debris. We did continue to look and found areas of the omentum that were bleeding, and these were stopped with electrocautery. The muscle layer was examined and found to be hemostatic. The fascia was reapproximated with 0 Vicryl in a running fashion. The subcutaneous tissue was closed with 2-0 Vicryl. The skin was closed in a subcuticular fashion with 4-0 Monocryl. The patient tolerated the procedure well. Sponge, lap and needle counts were correct times three. The patient was taken to the recovery room in stable condition. I appreciate the assistance of Dr. York during this procedure, and the assistance in retraction, visualization, dissection, and overall assistance during the case were instrumental to the patient's wellbeing. APGARs: 8/8
[2025-07-23] MEDS: fentaNYL 100 MCG/2 ML VIAL IVP PRN (11:36)
--- NOTE | 2025-07-23 12:44 | ANESTHESIA POST OP EVALUATION ---
Anesthesia Post Eval Post Anesthesia Eval Vitals: Last Vital Signs Temp 37.0 C 07/23/25 11:58 Pulse 108 H 07/23/25 11:58 Resp 16 07/23/25 11:58 BP 128/87 07/23/25 11:58 Pulse Ox 97 07/23/25 11:58 CV Function Including HR & BP: Stable Pain Control: Satisfactory Nausea & Vomiting: Negative Mental Status: Baseline Respiratory Status: Airway Patent Hydration Status: Satisfactory Anesthesia Complications: None
[2025-07-23] MEDS: KETOROLAC 30 MG/ML VIAL IVP SCH (13:37)
[2025-07-23] MEDS: ACETAMINOPHEN 500 MG TABLET PO SCH (15:38)
[2025-07-23] MEDS: oxyCODONE 5 MG TABLET PO PRN (15:39)
[2025-07-24] MEDS: LACTATED RINGERS 1,000 ML IV SCH (06:43)
[2025-07-24 06:46] LABS: HCT - HEMATOCRIT 36.7 % (37.0-47.0); HGB - HEMOGLOBIN 12.1 g/dL (12.0-16.0); MEAN PLATELET VOLUME 9.4 fL (7.9-10.8); NRBC ABSOLUTE COUNT (AUTO) 0.00 x10^3/uL; NUCLEATED RED BLOOD CELLS AUTO 0.0 /100WBC; PLT - PLATELET COUNT 301 10^3/uL (130-450); RED CELL DISTRIBUTION WIDTH 14.3 % (12.0-15.0)
[2025-07-24] MEDS: ACETAMINOPHEN 500 MG TABLET PO SCH (09:05)
[2025-07-24] MEDS: DOCUSATE SODIUM 100 MG CAPSULE PO SCH (09:06)
[2025-07-24] MEDS: IBUPROFEN 600 MG TABLET PO SCH (09:06)
[2025-07-24] MEDS: SIMETHICONE CHEW 80 MG TABLET PO PRN (09:06)
--- NOTE | 2025-07-24 10:11 | PHARMACY PROGRESS NOTE ---
Best Possible Medication History Admit Date and Time: 07/23/25 [id number] Home Medications Medication Instructions Recorded Confirmed Type cholecalciferol (vitamin D3) 125 5,000 unit PO DAILY 0 09/29/20 07/24/25 History mcg (5,000 unit) capsule vits no.126-ferrous fum 1 tab PO DAILY 07/23/25 History 28 mg iron-folic acid 800 mcg tablet (Classic ) Processed by: Pharmacy (Medication reconciliation completed by Melter AssistantDiana) Medications reviewed in ED?: No Medication History completed: Yes Patient Interview: Completed Secondary Source(s): Insurance records [facility] Statement: As the person ultimately responsible for medication therapy, providers are able to order a medication from an existing home medication list in [facility] via the "Reconcile Routine" prior to Confirmation of that medication by child support case officer. Such practice is discouraged except when the physician, in their clinical judgm ent, deems that a medical need exists for a medication without regard to previous use.
[2025-07-24] MEDS ORDERED: IBUPROFEN 600 MG TABLET PO SCH (12:00)
--- NOTE | 2025-07-24 15:55 | PROVIDER PROGRESS NOTE ---
Subjective Prog Note Date Prog Note Date: 07/24/25 Prog Note Time: 15:45 Subjective Pt reports feeling: Improved Subjective: POD #1 s/p repeat . Overnight events notable for transfer of the baby to for respiratory concerns. Patient has been doing well since surgery. She has had intermittent mild HTN. Denies preE sx. She has voided multiple times today without problems. Lochia has been decreasing. Pain has been manageable with Tylenol/Motrin. Her RN reports no oxy required today. Tolerating regular diet but no passage of flatus yet. Current Medications Current Medications Current Medications: Current Medications Generic Name Dose Route Start Last Admin Trade Name Freq PRN Reason Stop Dose Admin Acetaminophen 1,000 mg 07/24/25 09:00 07/24/25 15:04 Acetaminophen 500 Mg Tablet PO 1,000 mg Q6H FRENCH Administration Docusate Sodium 100 mg 07/24/25 09:00 07/24/25 09:06 Docusate Sodium 100 Mg Capsule PO 100 mg DAILY FRENCH Administration Lactated Ringer's 1,000 mls @ 125 mls/hr 07/23/25 07:00 07/24/25 06:45 Lr IV Not Given .Q8H FRENCH Oxytocin/Sodium Chloride 500 mls @ 999 mls/hr 07/23/25 11:13 Pitocin/Sodium Chloride IV PRN PRN POST- HEMORR PREVENTION Protocol 999 MILLIUNIT/MIN Lactated Ringer's 1,000 mls @ 100 mls/hr 07/23/25 12:00 07/24/25 06:38 Lr IV Not Given .Q10H FRENCH Ibuprofen 600 mg 07/24/25 09:00 07/24/25 15:04 Ibuprofen 600 Mg Tablet PO 600 mg Q6H FRENCH Administration Ondansetron HCl 4 mg 07/23/25 11:13 Ondansetron Odt 4 Mg Tablet TL Q4HR PRN Nausea / Vomiting Oxycodone HCl 5 mg 07/23/25 11:13 07/23/25 15:39 Oxycodone 5 Mg Tablet PO 5 mg Q4HR PRN Administration Moderate Pain (Level 4-6) Simethicone 80 mg 07/23/25 11:13 07/24/25 15:04 Simethicone Chew 80 Mg Tablet PO 80 mg TID PRN Administration Gas Objective Vital Signs/Intake & Output Reviewed Vital Signs: Yes Vital Signs: Vital Signs x48h Temp Pulse Resp BP Pulse Ox 07/24/25 14:25 36.7 C 103 H 16 120/82 97 07/24/25 10:33 36.7 C 99 16 126/85 Intake & Output: Intake & Output 07/21/25 07/22/25 07/23/25 07/24/25 23:59 23:59 23:59 23:59 Intake Total 4646 / 4646 250 / 250 Output Total 1650 / 1650 310 / 310 Balance 2996 / 2996 -60 / -60 Weight (kg) 87.543 kg Objective General Appearance: positive No acute distress and Alert Respiratory: positive No respiratory distress and Breath sounds nml Cardiovascular: positive Regular rate & rhythm Abdomen: positive Nml bowel sounds, Tenderness (Appropriate for postop) and Other (Dressing removed; steri-strips intact with some evidence of oozing at left side; no active discharge, redness, or separation present; uterine fundus firm at U-1, appropriately tender) Skin: positive Skin rash (Erythematous rash on the abdomen (area of adhesive contact)) Extremities: positive Full ROM and Nml appearance; negative Pedal edema Neurologic/Psychiatric: positive Oriented x3 and Mood/affect nml Lab Results 07/24/25 06:33 07/23/25 06:58 Other Labs: Lab Results x24hrs 07/24/25 Range/Units 06:33 WBC 12.0 H (4.8-10.8) x10^3/uL RBC 4.21 (4.20-5.40) 10^6/uL Hgb 12.1 (12.0-16.0) g/dL Hct 36.7 L (37.0-47.0) % MCV 87.2 (81.0-99.0) fL MCH 28.7 (27.0-31.0) pg MCHC 33.0 (32.0-36.0) g/dL RDW 14.3 (12.0-15.0) % Plt Count 301 (130-450) 10^3/uL MPV 9.4 (7.9-10.8) fL Neut # (Auto) 9.4 H (1.5-6.6) 10^3/uL Lymph # (Auto) 1.4 L (1.5-3.5) 10^3/uL [place] # (Auto) 1.0 (0.0-1.0) 10^3/uL Eos # (Auto) 0.1 (0.0-0.7) 10^3/uL Baso # (Auto) 0.1 (0.0-0.1) 10^3/uL Absolute Nucleated RBC 0.00 x10^3/uL Nucleated RBC % 0.0 /100WBC Assessment/Plan Problem List (1) care following delivery: Impression: POD #1 s/p repeat and doing very well. VSS notable for mildly elevated BP on 2 occasions at least 4 hrs apart. BP c/w mild gestational HTN. Pt has hx of possibly developing such with her last child but no hx of need for medications or severe features. - Cont routine postop care. - Given the transfer of the infant, offered early discharge (nearing 36 hrs postop) if she passes flatus and BPs remain normal. Otherwise, plan for discharge home tomorrow morning. - Ordered meds in case of discharge later tonight: motrin, tylenol, oxy (10 tabs), and stool softener. - If d/c home, f/u for BP check /. - Reviewed d/c instructions and precautions. (2) Gestational hypertension: Qualifiers: Trimester: unspecified trimester Qualified Code(s): O13.9 - Gestational [-induced] hypertension without significant proteinuria, unspecified trimester (3) Contact dermatitis: Impression: Exam suggestive of skin reaction to OR drape adhesive. Pt reports she usually gets a rash after surgery. Sx not currently bothersome for her. Ordering Benadryl prn itching. Qualifiers: Contact dermatitis type: allergic Contact dermatitis trigger: adhesive Qualified Code(s): L23.1 - Allergic contact dermatitis due to adhesives (4) Obesity, Class I, BMI 30-34.9: (5) Obesity affecting : Qualifiers: Trimester: third trimester Obesity type affecting : severe obesity due to excess calories Qualified Code(s): O99.213 - Obesity complicating , third trimester; E66.01 - Morbid (severe) obesity due to excess calories
[2025-07-25 08:40] VITALS: TEMP 98.6; O2SAT 98
--- NOTE | 2025-07-25 09:15 | Discharge Summary ---
"Discharge Summary Admit Date: 07/23/25 Discharge Date: 07/25/25 Discharging Provider: Dr. Ashia Stock Primary Care Provider: Dr. Abdias Garcia Code Status: Attempt Resuscitation Discharge Facility Name: [facility] DIAGNOSES Admission Diagnoses: - Maternal care for prior uterine scar, third trimester - Maternal obesity complicating , third trimester - at 37 weeks gestation - History myomectomy - History labor/ Discharge Diagnoses with Status of Each Condition: - Same as above, now s/p repeat low transverse - Gestational hypertension HPI History of Present Illness: 29-year-old at 37 weeks 2 days gestation presenting for repeat section. She also has a history of prior myomectomy, including endometrial cavity entry, as well as prior spontaneous labor at 36 weeks with last . She has had intermittent contractions for several week. She has good movement. Denies loss of fluid. No DODSON/BV or RUQP. No vaginal bleeding. Denies nausea and vomiting. Denies urinary urgency or dysuria. Course LMP: 10/28/24 - certain MARGOT by LMP: 08/04/25 US: 12/27/24 measuring 7w4d, MARGOT 08/11/25 Final MARGOT: 08/11/25 by 1st tri US Problems: RCS, hx labor/delivery History of myomectomy: Extensive myomectomy including endometrial cavity injury. Early term to late section. Did have 36 weeks spontaneous labor last . Recommend 35 to 36 weeks steroids and progressing to 37 weeks 0 days if possible. History of labor: Delivery at 36+0 weeks last social: Dunia is home mom with 3.5 yo son. Ander works for a local [employer] Insufficient weight gain in : EFW on 06/17: 70th percentile, 2129 g. Pre- Weight: 195 BMI: 34.5 Blood type: A+ Antibody: Negative CBC: 13.8/41.1; 347 RUB: Immune VZV: Immune HBsAg: Negative HepC: NR RPR/AB-EIA: NR HIV: NR PAP: 11/08/24 - normal GC/CT: 01/23/2025 HSV: denies in self and partner Genetic testing: NIPT negative, AFP ordered Covid: declines flu 06/05/2025 FAS: 03/25 Placenta: anterior without previa Cord: 3VC VERITO: WNL 59% EFW: 368g 74% 50gm OGCT: 120 TDAP: 05/20/25 Breast Pump: ordered RPR NR CBC: 11.6/35.6/346 RSV- 06/17/25 GBS: 07/15/25 Delivery plan: 36-37 week RCS Contraception: natural family planning CONSULTS | PROCEDURES Consultations: None Procedures: Repeat low transverse HOSPITAL COURSE Hospital Course: After uncomplicated repeat , the patient was returned to L&D and recovered well. Her required transfer the night of delivery due to respiratory concerns and need for IV antibiotics. Dunia had 2 mildly elevated blood pressures at the time of admission then one more > 4 hrs later, meeting diagnosis for gestational HTN. However, subsequent pressures were all wnl. She had no severe-range BP's during her stay and did not require start of antihypertensive medication. She was afebrile and other did well postop. She is being discharged home on POD #2 after meeting criteria. She has been ambulating, voiding, tolerating a regular diet, passing flatus, and controlling pain with oral medications. - D/c home today - Reviewed precautions for bleeding, infection, and preE sx - BP cuff ordered at discharge. Recommend checking bid. Call and return if severe BP's 160s/110s or higher. Call clinic/doctor's line if having persistent mild/moderate BPs - Reviewed limitations and wound care - F/u one week postop for incision/BP check ALLERGIES Allergies Allergy/AdvReac Type Severity Reaction Status Date / Time No Known Drug Allergies Allergy Verified 07/15/25 14:06 MEDICATIONS Ambulatory Orders Medication Instructions Recorded Confirmed cholecalciferol (vitamin D3) 125 5,000 unit PO DAILY 0 09/29/20 07/24/25 mcg (5,000 unit) capsule vits no.126-ferrous fum 1 tab PO DAILY 07/23/25 28 mg iron-folic acid 800 mcg tablet (Classic ) acetaminophen 500 mg tablet 1,000 mg (2 x 500 mg) PO Q 6H #30 07/24/25 (Tylenol Extra Strength) tabs docusate sodium 100 mg capsule 100 mg PO BID PRN const ipation #30 07/24/25 caps ibuprofen 600 mg tablet 600 mg PO Q6H #30 tabs 07/24 miscellaneous medical supply #1 ea 07/24/25 (Blood Pressure Cuff) oxycodone 5 mg tablet 5 mg PO Q4HR PRN Moderate Pa in 07/24/25 (Level 4-6) #10 tabs PHYSICAL EXAM AT DISCHARGE Vital Signs: Vital Signs x48h Temp Pulse Resp BP Pulse Ox 07/25/25 08:39 37.0 C 95 16 128/89 98 07/25/25 03:28 36.8 C 92 14 119/76 97 General Appearance: positive No acute distress and Alert Respiratory: positive No respiratory distress and Breath sounds nml Cardiovascular: positive Regular rate & rhythm Abdomen: positive Non-tender, Nml bowel sounds and Other (Incision: steri-strips clean, dry, intact with some evidence of discharge on the left (unchanged from yesterday); fundus firm at U-1, nontender) Skin: positive Skin rash (Erythematous rash on abdomen - unchanged from yesterday and secondary to drape adhesive) Extremities: positive Non-tender, Full ROM and Nml appearance; negative Pedal edema Neurologic/Psychiatric: positive Oriented x3 and Mood/affect nml LABS 07/24/25 06:33 07/23/25 06:58 QUALITY (Female Hip Fx Only) Was patient sent home on osteoporosis medication?: No FOLLOW UP Follow Up: 07/31 in OB clinic for incision and BP check TIME SPENT Time Spent in Discharge (Minutes): 20 Discharge Plan Discharge Patient Disposition: 01 Home, Self Care Condition: Good Medically Cleared Date:: 07/25/25 Prescriptions: New acetaminophen [Tylenol Extra Strength] 500 mg Tablet 1,000 mg PO Q6H Qty: 30 0RF docusate sodium 100 mg Capsule 100 mg PO BID PRN (Reason: constipation) Qty: 30 0RF ibuprofen 600 mg Tablet 600 mg PO Q6H Qty: 30 0RF oxycodone 5 mg Tablet 5 mg PO Q4HR PRN (Reason: Moderate Pain (Level 4-6)) Qty: 10 0RF (DME) Blood Pressure Cuff Misc See Rx Instructions .Route Qty: 1 0RF Rx Instructions: As directed Continued cholecalciferol (vitamin D3) 5,000 UNIT capsule 5,000 unit PO DAILY Classic 28 mg iron- 800 mcg tablet 1 tab PO DAILY Activity Restrictions/Additional Instructions: - Pelvic rest for 6 wks - No driving until pain-free, off narcotic medications - No heavy lifting or exercise until 6 wks Diet: Regular Print Language: Sinhala Patient Instructions: Care ..., After a , Gestational Hypertension Follow-up Care: Abdias Garcia MD [Provider Admit Priv/Credential, Obstetrics/Gynecology] Referral Note: Postop visit scheduled for 07/31 Vitals documented within 30 minutes of discharge?: Yes"
[2025-07-25 10:01] VITALS: BP 122/89
--- NOTE | 2025-07-25 10:11 | Labor Flowsheet ---
Labor Flowsheet Datetime Report Generated by CPN: 07/25/2025 10:10 Datetime: 07/23/2025 14:00 VAGINAL EXAM Membranes Ruptured Date/Time: 07/23/2025 09:44 Membranes Rupture Method: Artificial Amniotic Fluid Color: Clear Datetime: 07/23/2025 06:45 UTERINE ACTIVITY Monitor Mode: External Frequency (min): 0 Quality: Mild Duration (sec): 0 ASSESSMENT A Monitor Mode: External US FHR Baseline Rate : 130 Variability: Moderate 6-25 bpm Accelerations: 15X15 Decelerations: None
== END 2025-07-25 09:50 | disposition home or self-care (01) | DRG 788 ==
LOC: FBP 06:34
PROVIDERS: ADMIT Obstetrics & Gynecology; ATTEND Obstetrics & Gynecology